=== PATIENT | male | born 1960 | race Caucasian/White ===

== ENCOUNTER 2023-11-03 10:00 | Outpatient (RCR) | payer OTHER, SELFPAY ==
[2023-10-27 10:01] VITALS: BP 154/96; PULSE 97; RESP 16; TEMP 36.9; BMI 30.5
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
[2023-11-03 10:05] VITALS: BP 168/84; PULSE 94; RESP 18; TEMP 36.6; BMI 30.5
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
== END 2023-11-15 23:59 | disposition home or self-care (01) ==
LOC: WC 10:00
PROVIDERS: PCP Radiologic Technologist Bone Densitometry; Referring Provider Radiologic Technologist Bone Densitometry; Visit Provider Internal Medicine
DX: L97.912 Non-pressure chronic ulcer of unspecified part of right lower leg with fat layer exposed (principal); L97.922 Non-pressure chronic ulcer of unspecified part of left lower leg with fat layer exposed; S89.92XS Unspecified injury of left lower leg, sequela; X58.XXXS Exposure to other specified factors, sequela; Z79.899 Other long term (current) drug therapy
CPT/HCPCS: 11042; 11045; 87070; 87075; 87077; 87186; 87205; 99203; G0463

== ENCOUNTER 2023-12-15 10:00 | Outpatient (RCR) | payer OTHER, SELFPAY ==
[2023-11-16 00:31] VITALS: BP 168/84; PULSE 94; RESP 18; TEMP 36.6; BMI 30.5
[2023-11-17 09:46] VITALS: BP 181/97; PULSE 75; TEMP 36.8; BMI 30.5
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
[2023-11-24 10:25] VITALS: BP 146/74; PULSE 72; RESP 18; TEMP 36.4; BMI 30.5
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
[2023-12-01 10:05] VITALS: BP 156/77; PULSE 68; RESP 18; TEMP 36.2; BMI 30.5
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
[2023-12-08 09:53] VITALS: BP 146/82; PULSE 73; RESP 18; TEMP 37; BMI 30.5
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
--- NOTE | 2023-12-13 11:49 | WC ---
12/08/2023 RIGHT LE ANTERIOR
--- NOTE | 2023-12-13 11:50 | WC ---
12/08/2023 LEFT LE ANTERIOR
[2023-12-15 09:49] VITALS: BP 160/89; PULSE 74; RESP 18; TEMP 35.9; BMI 30.5
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
== END 2023-12-16 23:59 | disposition home or self-care (01) ==
LOC: WC 10:00
PROVIDERS: PCP Radiologic Technologist Bone Densitometry; Referring Provider Radiologic Technologist Bone Densitometry; Visit Provider Internal Medicine
DX: L97.812 Non-pressure chronic ulcer of other part of right lower leg with fat layer exposed (principal); L97.822 Non-pressure chronic ulcer of other part of left lower leg with fat layer exposed; S89.92XS Unspecified injury of left lower leg, sequela; X58.XXXS Exposure to other specified factors, sequela; F17.220 Nicotine dependence, chewing tobacco, uncomplicated; Z79.899 Other long term (current) drug therapy
CPT/HCPCS: 11042

== ENCOUNTER 2024-01-12 10:00 | Outpatient (RCR) | payer OTHER, SELFPAY ==
[2023-12-17 01:59] VITALS: BP 168/84; PULSE 94; RESP 18; TEMP 36.6; BMI 30.5
[2023-12-22 09:54] VITALS: BP 154/83; PULSE 72; RESP 16; TEMP 36.9; BMI 30.5
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
[2023-12-29 09:41] VITALS: BP 173/94; PULSE 73; RESP 18; TEMP 36.3; BMI 30.5
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
[2024-01-12 09:23] VITALS: BP 143/95; PULSE 75; RESP 18; TEMP 36.6; BMI 30.5
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
== END 2024-01-15 23:59 | disposition home or self-care (01) ==
LOC: WC 10:00
PROVIDERS: PCP Radiologic Technologist Bone Densitometry; Referring Provider Radiologic Technologist Bone Densitometry; Visit Provider Internal Medicine
DX: L97.912 Non-pressure chronic ulcer of unspecified part of right lower leg with fat layer exposed (principal); L97.922 Non-pressure chronic ulcer of unspecified part of left lower leg with fat layer exposed; S89.92XS Unspecified injury of left lower leg, sequela; X58.XXXS Exposure to other specified factors, sequela; Z79.899 Other long term (current) drug therapy
CPT/HCPCS: 11042

== ENCOUNTER 2024-02-02 10:00 | Outpatient (RCR) | payer OTHER, SELFPAY ==
[2024-01-16 00:22] VITALS: BP 168/84; PULSE 94; RESP 18; TEMP 36.6; BMI 30.5
[2024-01-26 10:03] VITALS: BP 132/78; PULSE 68; RESP 18; TEMP 36.6; BMI 30.5
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
--- NOTE | 2024-02-01 09:30 | WC ---
PHOTO 01/26/24 RIGHT LATERAL LE
--- NOTE | 2024-02-01 09:32 | WC ---
PHOTO 01/26/24 LT AVILA
[2024-02-02 10:20] VITALS: BP 174/77; PULSE 66; RESP 16; TEMP 36.8; BMI 30.5
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
--- NOTE | 2024-02-03 11:35 | WC ---
PHOTO 02/02/24 ANT.LEFT LEG
== END 2024-02-15 23:59 | disposition home or self-care (01) ==
LOC: WC 10:00
PROVIDERS: PCP Radiologic Technologist Bone Densitometry; Referring Provider Radiologic Technologist Bone Densitometry; Visit Provider Internal Medicine
DX: L97.912 Non-pressure chronic ulcer of unspecified part of right lower leg with fat layer exposed (principal); L97.922 Non-pressure chronic ulcer of unspecified part of left lower leg with fat layer exposed; S89.92XS Unspecified injury of left lower leg, sequela; X58.XXXS Exposure to other specified factors, sequela; Z79.899 Other long term (current) drug therapy
CPT/HCPCS: 11042

== ENCOUNTER 2024-03-08 10:00 | Outpatient (RCR) | payer OTHER, SELFPAY ==
[2024-02-16 00:12] VITALS: BP 168/84; PULSE 94; RESP 18; TEMP 36.6; BMI 30.5
[2024-02-16 10:05] VITALS: BP 154/80; PULSE 72; RESP 18; TEMP 36.4; BMI 30.5
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
[2024-02-23 09:59] VITALS: BP 117/80; PULSE 65; RESP 18; BMI 30.5
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
[2024-03-08 09:41] VITALS: BP 133/91; PULSE 85; RESP 18; TEMP 36.7; BMI 30.5
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
--- NOTE | 2024-03-08 14:14 | WC ---
PHOTO 03/08/24 MOSHE
== END 2024-03-17 23:59 | disposition home or self-care (01) ==
LOC: WC 10:00
PROVIDERS: PCP Radiologic Technologist Bone Densitometry; Referring Provider Radiologic Technologist Bone Densitometry; Visit Provider Internal Medicine
DX: L97.822 Non-pressure chronic ulcer of other part of left lower leg with fat layer exposed (principal); S89.92XS Unspecified injury of left lower leg, sequela; X58.XXXS Exposure to other specified factors, sequela; Z79.899 Other long term (current) drug therapy
CPT/HCPCS: 11042; 99212; G0463

== ENCOUNTER 2024-03-29 09:42 | Outpatient (RCR) | payer OTHER, SELFPAY ==
[2024-03-18 00:14] VITALS: BP 168/84; PULSE 94; RESP 18; TEMP 36.6; BMI 30.5
[2024-03-29 10:00] VITALS: BP 178/87; RESP 18; TEMP 36.4; BMI 30.5
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
--- NOTE | 2024-03-30 08:56 | WC ---
PHOTO 03/29/24 LEFT LEG
== END 2024-03-29 11:00 | disposition home or self-care (01) ==
LOC: WC 09:42
PROVIDERS: PCP Radiologic Technologist Bone Densitometry; Referring Provider Radiologic Technologist Bone Densitometry; Visit Provider Internal Medicine
DX: L97.822 Non-pressure chronic ulcer of other part of left lower leg with fat layer exposed (principal); S89.92XS Unspecified injury of left lower leg, sequela; X58.XXXS Exposure to other specified factors, sequela; Z79.899 Other long term (current) drug therapy
CPT/HCPCS: 99213; G0463